=== PATIENT | male | born 1995 | race Asian ===

== ENCOUNTER 2018-07-13 08:55 | Emergency (ER) | payer MEDICAID ==
[~2018-07-13] VITALS: Ht 180.3 cm; Wt 95.0 kg
[2018-07-13 10:27] VITALS: BP 124/76
== END 2018-07-13 10:28 | disposition home or self-care (01) ==
LOC: ER 09:09
DX: Z48.02 Encounter for removal of sutures (principal)
CPT/HCPCS: 99282; Z7610

== ENCOUNTER 2022-04-21 19:59 | Emergency (ER) | payer MEDICAID ==
[~2022-04-21] VITALS: Ht 182.9 cm; Wt 91.0 kg
[~2022-04-21 19:59] MED LIST: FOLI-43 PO; LEVE1000 PO; PHEN100C4 PO; THIA100T72 PO
[2022-04-21 20:15] VITALS: BP 140/67
[2022-04-22] MEDS ORDERED: LORAZEPAM 1MG TABLET PO ONE
[2022-04-22 01:01] LABS: BASOPHILS % 0.6 % (0.0-2.0); HEMATOCRIT. 49.2 % (42.0-52.0); HEMOGLOBIN. 16.8 g/dL (14.0-18.0); LYMPHOCYTES % 12.3 % (20.0-50.0); MEAN CORPUSCULAR HEMOGLOBIN 31.8 pg (28.0-32.0); MEAN CORPUSCULAR VOLUME 93.4 fL (80.0-94.0); MEAN PLATELET VOLUME 7.3 fl (7.4-10.4); NEUTROPHILS % 78.1 % (40.0-76.0); PLATELET 367 x1000/uL (130-400); RED BLOOD CELL COUNT 5.27 mill/uL (4.7-6.1); RED CELL DISTRIBUTION WIDTH 13.4 % (11.6-14.6)
[2022-04-22 01:13] LABS: CHLORIDE 100 mEq/L (98-107)
[2022-04-22 01:29] LABS: ETHANOL BLOOD < 10 mg/dL
[2022-04-22] MEDS ORDERED: LORAZEPAM 1MG TABLET PO NR (01:30)
[2022-04-22 02:21] LABS: CLARITY URINE CLEAR (CLEAR); COLOR URINE DARK YELLOW (YELLOW); KETONES URINE 1+ (NEGATIVE); LEUKOCYTE ESTERASE URINE TRACE (NEGATIVE); NITRITE URINE NEGATIVE (NEGATIVE); OCCULT BLOOD URINE TRACE (NEGATIVE); PH URINE 8.5 (4.5-8.0); PROTEIN URINE 2+ (NEGATIVE); SPECIFIC GRAVITY URINE 1.028 (1.005-1.030)
[2022-04-22 02:39] LABS: *AMPHETAMINES SCREEN URINE NEGATIVE (NEGATIVE); *BARBITURATES SCREEN URINE NEGATIVE (NEGATIVE); *BENZODIAZEPINES SCREEN URINE NEGATIVE (NEGATIVE); *COCAINE SCREEN URINE NEGATIVE (NEGATIVE); CANNABINOID URINE SCREEN PRESUMTIVE POSITIVE (NEGATIVE); METHADONE URINE SCREEN NEGATIVE (NEGATIVE); OPIATES URINE SCREEN NEGATIVE (NEGATIVE); PHENCYCLIDINE URINE SCREEN NEGATIVE (NEGATIVE)
== END 2022-04-22 03:26 | disposition home or self-care (01) ==
LOC: ER 19:59
DX: F41.9 Anxiety disorder, unspecified (principal)
CPT/HCPCS: 36415; 80048; 80305; 80320; 81003; 84443; 85025; 93005; 99284; G0480

== ENCOUNTER 2023-04-23 22:40 | Emergency (ER) | payer MEDICAID ==
[~2023-04-23] VITALS: Ht 180.3 cm; Wt 100.0 kg
[2023-04-23 22:47] VITALS: BP 144/94
== END 2023-04-24 00:17 | disposition left against medical advice (07) ==
LOC: ER 22:52
DX: S01.112A Laceration without foreign body of left eyelid and periocular area, initial encounter (principal); W25.XXXA Contact with sharp glass, initial encounter; Y93.89 Activity, other specified; Y92.89 Other specified places as the place of occurrence of the external cause; Y99.8 Other external cause status
CPT/HCPCS: 99281; 99283

== ENCOUNTER 2023-06-05 09:21 | Emergency (ER) | payer MEDICAID ==
[~2023-06-05] VITALS: Ht 188 cm; Wt 113.0 kg
[2023-06-05 09:26] VITALS: BP 146/80; PULSE 90; RESP 16; O2SAT 98
[2023-06-05 10:00] VITALS: TEMP 98.3
[2023-06-05] MEDS ORDERED: TETANUS, DIPHTHERIA, PERTUSSIS VAC/PF 0.5ML (>10YR OLD) IM ONE (10:00)
[2023-06-05] MEDS ORDERED: LIDOCAINE HCL/EPINEPHRINE 1%-EPI 1:100,000 50 ML VIAL INFIL ONE (10:00)
[2023-06-05] MEDS ORDERED: ACETAMINOPHEN 325MG TABLET PO ONE (10:00)
[2023-06-05] MEDS ORDERED: LIDOCAINE HCL/EPINEPHRINE 1%-EPI 1:100,000 20 ML VIAL INFIL NR (11:00)
== END 2023-06-05 13:16 | disposition home or self-care (01) ==
LOC: ER 09:47
DX: S51.812A Laceration without foreign body of left forearm, initial encounter (principal); S09.90XA Unspecified injury of head, initial encounter; G89.11 Acute pain due to trauma; F41.9 Anxiety disorder, unspecified; Y08.89XA Assault by other specified means, initial encounter; Y93.89 Activity, other specified; Y92.89 Other specified places as the place of occurrence of the external cause; Y99.8 Other external cause status
CPT/HCPCS: 73090; 73110; 73130; 70450; 90715; 12004; 90471; 99285; J3490; Z7610 ×3

== ENCOUNTER 2024-04-03 08:58 | Emergency (ER) | payer MEDICAID ==
[~2024-04-03] VITALS: Ht 180.3 cm; Wt 95.0 kg
[2024-04-03 09:00] VITALS: BP 147/86; PULSE 62; RESP 16; TEMP 98.5; O2SAT 100
[2024-04-03] MEDS ORDERED: CHLO25CA10 MT (09:13)
[2024-04-03] MEDS ORDERED: ONDA4TAB11 PO (09:13)
[2024-04-03] MEDS: ONDANSETRON 4MG ODT PO ONE (09:37)
[2024-04-03] MEDS: CHLORDIAZEPOXIDE 25MG CAPSULE PO ONE (09:37)
== END 2024-04-03 09:48 | disposition home or self-care (01) ==
LOC: ER 08:58
DX: F10.10 Alcohol abuse, uncomplicated (principal); Z91.048 Other nonmedicinal substance allergy status; Z86.59 Personal history of other mental and behavioral disorders; Y90.9 Presence of alcohol in blood, level not specified
CPT/HCPCS: 99283; Q0162

== ENCOUNTER 2025-10-18 07:00 | Emergency (ER) | payer MEDICAID ==
[~2025-10-18] VITALS: Ht 177.8 cm; Wt 113.0 kg
[~2025-10-18 07:00] MED LIST changes: +CHLO25CA10 MT; +ONDA-239 PO
[2025-10-18 07:06] VITALS: O2SAT 98
[2025-10-18 07:37] LABS: BASOPHILS % 0.4 % (0.0-2.0); EOSINOPHILS % 1.3 % (0.0-5.0); HEMATOCRIT. 44.0 % (42.0-52.0); HEMOGLOBIN. 14.4 g/dL (14.0-18.0); LYMPHOCYTES % 12.0 % (20.0-50.0); MEAN PLATELET VOLUME 6.9 fl (7.4-10.4); MONOCYTES % 6.2 % (2.0-8.0); NEUTROPHILS % 80.1 % (40.0-76.0); PLATELET 286 x1000/uL (130-400); RED BLOOD CELL COUNT 4.58 mill/uL (4.7-6.1); RED CELL DISTRIBUTION WIDTH 13.2 % (11.6-14.6)
[2025-10-18 07:55] LABS: CREATININE 1.0 mg/dL (0.6-1.3); UREA NITROGEN BLOOD 9 mg/dL (9-23)
[2025-10-18 07:57] LABS: ASPARTATE AMINOTRANSFERASE 96 IU/L (<34); BILIRUBIN DIRECT 0.2 mg/dL (<=3.0); BILIRUBIN TOTAL 0.7 mg/dL (0.1-1.0); PROTEIN TOTAL 7.8 g/dL (6.0-8.3)
[2025-10-18] MEDS: MAGNESIUM/ALUMINUM HYDROXIDE/SIMETHICONE 30ML UDC PO ONE (08:21)
[2025-10-18] MEDS: ONDANSETRON 4MG ODT PO ONE (08:22)
[2025-10-18] MEDS: FAMOTIDINE 20MG TABLET PO ONE (08:22)
[2025-10-18 08:27] LABS: ETHANOL BLOOD 90 mg/dL (<10)
[2025-10-18] MEDS: CHLORDIAZEPOXIDE 25MG CAPSULE PO ONE (09:14)
[2025-10-18 09:19] VITALS: BP 103/80; PULSE 97; RESP 11; TEMP 36.8; O2SAT 99
[2025-10-18 10:09] LABS: *AMPHETAMINES SCREEN URINE NEGATIVE (NEGATIVE); *BARBITURATES SCREEN URINE NEGATIVE (NEGATIVE); *BENZODIAZEPINES SCREEN URINE NEGATIVE (NEGATIVE); *COCAINE SCREEN URINE NEGATIVE (NEGATIVE); CANNABINOID URINE SCREEN PRESUMPTIVE POSITIVE (NEGATIVE); ECSTASY MDMA SCREEN URINE NEGATIVE (NEGATIVE); METHADONE URINE SCREEN NEGATIVE (NEGATIVE); OPIATES URINE SCREEN NEGATIVE (NEGATIVE); PHENCYCLIDINE URINE SCREEN NEGATIVE (NEGATIVE)
== END 2025-10-18 09:41 | disposition home or self-care (01) ==
LOC: ER 07:00
DX: F10.129 Alcohol abuse with intoxication, unspecified (principal); F17.200 Nicotine dependence, unspecified, uncomplicated; Z79.899 Other long term (current) drug therapy; Y90.4 Blood alcohol level of 80-99 mg/100 ml
CPT/HCPCS: 80076; 80305; 80048; 80320; 83690; 85025; 36415; 99284; Q0162; Z7610; G0480